=== PATIENT | male | born 1995 | race Caucasian/White ===

== ENCOUNTER 2017-02-10 00:50 | Emergency (ER) | payer OTHER ==
--- NOTE | 2017-02-10 00:50 | EDPHY ---
H & P HPI/ROS: Chief Complaint: Alcohol intoxication, vomiting HPI: 21-year-old male who was [place] friends intoxicated. Patient passed out after vomiting. Is unable to ambulate on their own. Patient brought in by EMS for further evaluation. No obvious signs of trauma per EMS. Remainder of history is unobtainable secondary to the patient's intoxication. ROS: Unobtainable secondary to the patient's intoxication PMH: Unknown Medications: Unknown Allergies: Unknown Social History: Positive for alcohol Family History: non-contributory Physical Exam: Gen: Somnolent, responds to painful stimuli, maintaining airway, smells of alcohol and emesis HEENT: Atraumatic Nose: no epistaxis or deformity Eyes: PERRLA, EOMI Mouth: Moist mucosa Neck: Supple, no step-offs or deformity Chest: Atraumatic, lungs clear to auscultation Heart: S1, S2 normal, no murmur Abd: Soft, non-tender, no guarding Back: Atraumatic Ext: no edema, atraumatic Skin: no rash Neuro: Sensation grossly intact, Strength 5/5 in bilateral upper and lower extremities Constitutional: Initial Vital Signs Temperature (C) 36.2 C 02/10/17 02:05 Heart Rate 95 02/10/17 02:05 Respiratory Rate 14 02/10/17 02:05 Blood Pressure 86/51 L 02/10/17 02:05 O2 Sat (%) 92 02/10/17 02:05 O2 Delivery Mode Room Air Allergies/Adverse Reactions: No Known Allergies Allergy (Unverified 02/10/17 01:01) Home Medications: Medication Instructions Recorded NK [No Known Home Meds] 02/10/17 Medical Decision Making ED Course/Re-evaluation: Patient is now awake and appropriate. Ambulating unassisted to the bathroom. No current complaints. Medically cleared for discharge. - Data Points Medications Given: Discontinued Medications Sodium Chloride (Ns) 1,000 mls @ 0 mls/hr IV ONCE ONE; Wide Open PRN Reason: Protocol Stop: 02/10/17 02:03 Last Admin: 02/10/17 02:03 Dose: 1,000 mls Departure - Departure Disposition: Home, Routine, Self-Care Clinical Impression: Alcoholic intoxication Condition: Good Instructions: Alcohol Intoxication (ED)
[2017-02-10] MEDS ORDERED: NS 1,000 ML IV ONE (02:02)
[2017-02-10 04:36] VITALS: RESP 18
[2017-02-10 05:48] VITALS: BP 118/78; PULSE 74; TEMP 98.4; O2SAT 98
== END 2017-02-10 05:58 | disposition home or self-care (01) ==
LOC: EDUNIT#
DX: F10.129 Alcohol abuse with intoxication, unspecified (principal); E86.9 Volume depletion, unspecified